=== PATIENT | female | born 1990 | race Caucasian/White ===

== ENCOUNTER 2017-10-21 12:41 | Inpatient (IN) | payer OTHER ==
[2017-10-21 17:18] LABS: ABS Basophils 0 10^3/ul (0-0.2); ABS Eosinophils 0.2 10^3/ul (0-0.6); ABS Lymphocytes 2.5 10^3/ul (1.0-4.8); ABS Monocytes 0.9 10^3/ul (0-0.8); ABS Neutrophils 6.9 10^3/ul (1.5-7.7); ABS Nucleated RBC 0 10^3/ul; Eosinophil % 2.1 % (0-6); Hematocrit 35 % (35-47); Hemoglobin 11.5 g/dl (12.0-16.0); Lymphocyte % 23.4 % (25-47); Mean Corpuscular HGB Conc 33 g/dl (31-36); Mean Corpuscular Hemoglobin 27 pg (27-31); Mean Corpuscular Volume 82 fL (80-97); Mean Platelet Volume 8 um3 (7.4-10.4); Nucleated Red Blood Cells % 0; Platelet Count 268 10^3/ul (150-450); Red Blood Count 4.26 10^6/ul (4.0-5.4); Red Cell Distribution Width 15 % (10.5-15); White Blood Count 10.6 10^3/ul (3.5-10.8)
[2017-10-21] MEDS ORDERED: Acetaminophen TAB* 325 MG PO ONE (18:00)
[2017-10-21] MEDS ORDERED: Penicillin G Potassium IV* 5,000,000 UNITS in NS 0.9% 100 ML* 100 ML IVPB ONE (19:01)
[2017-10-21] MEDS ORDERED: NS 0.9% 100 ML* 100 ML ONE (19:30)
[2017-10-21] MEDS: Penicillin G Potassium IV* 2,500,000 UNITS in NS 0.9% 100 ML* 100 ML IVPB SCH (23:55)
[2017-10-22] MEDS: Penicillin G Potassium IV* 2,500,000 UNITS in NS 0.9% 100 ML* 100 ML IVPB SCH ×5 (04:15→23:03)
[2017-10-22] MEDS ORDERED: Oxytocin in LR* 20 UNITS/1,000 ML BAG IVPB SCH ×2 (11:00→19:00)
[2017-10-22] MEDS ORDERED: Buffered Lidocaine 0.9% SYRIN* 5 ML/SYR SYRINGE ONE (12:30)
[2017-10-22] MEDS ORDERED: Witch Hazel PAD* JAR TOPICAL PRN (18:19)
[2017-10-22] MEDS ORDERED: Glycerin ADULT SUPP PR PRN (18:19)
[2017-10-22] MEDS ORDERED: Acetaminophen TAB* 325 MG PO PRN (18:19)
[2017-10-22] MEDS ORDERED: Dibucaine 1% 28.35 GM TUBE PR PRN (18:19)
[2017-10-22] MEDS ORDERED: Dibucaine 1% 28.35 GM TUBE ONE (19:52)
[2017-10-22] MEDS ORDERED: Ibuprofen TAB* 600 MG ONE (19:52)
[2017-10-22] MEDS ORDERED: Witch Hazel PAD* JAR ONE (19:52)
[2017-10-22] MEDS: Ibuprofen TAB* 600 MG PO PRN (19:54)
[2017-10-22] MEDS ORDERED: Simethicone TAB* 80 MG TAB.CHEW PO SCH (21:00)
[2017-10-22] MEDS: Docusate CAP* 100 MG PO SCH (23:04)
[2017-10-22] MEDS ORDERED: Phenylephrine IV* 40 MCG/ML 10 ML SYRINGE ONE (23:54)
[2017-10-23 07:39] LABS: ABS Basophils 0 10^3/ul (0-0.2); ABS Eosinophils 0.3 10^3/ul (0-0.6); ABS Lymphocytes 3.5 10^3/ul (1.0-4.8); ABS Monocytes 1.2 10^3/ul (0-0.8); ABS Neutrophils 9.5 10^3/ul (1.5-7.7); ABS Nucleated RBC 0 10^3/ul; Hematocrit 32 % (35-47); Lymphocyte % 24.3 % (25-47); Mean Corpuscular HGB Conc 34 g/dl (31-36); Mean Corpuscular Hemoglobin 28 pg (27-31); Mean Corpuscular Volume 81 fL (80-97); Mean Platelet Volume 8 um3 (7.4-10.4); Nucleated Red Blood Cells % 0; Platelet Count 250 10^3/ul (150-450); Red Blood Count 3.99 10^6/ul (4.0-5.4); Red Cell Distribution Width 15 % (10.5-15); White Blood Count 14.5 10^3/ul (3.5-10.8)
[2017-10-23] MEDS: Ibuprofen TAB* 600 MG PO PRN ×2 (07:46→20:05)
[2017-10-23] MEDS ORDERED: Ferrous Gluconate TAB* 324 MG TAB PO SCH (09:00)
[2017-10-23] MEDS: Docusate CAP* 100 MG PO SCH ×2 (16:29→20:05)
[2017-10-24] MEDS: Docusate CAP* 100 MG PO SCH ×2 (07:56→14:24)
[2017-10-24] MEDS: Ibuprofen TAB* 600 MG PO PRN ×2 (07:56→14:24)
[2017-10-24 08:05] VITALS: BP 121/70
== END 2017-10-24 18:40 | disposition home or self-care (01) | DRG 560 ==
LOC: MCHOBOUT 12:41 → MCHOB 16:25 → INTOOBSV 16:25 → MCHOB 17:16 → OBSVTOIN 19:01 → MCHOB 10-22 20:29
PROVIDERS: ADMIT Midwife; ATTEND Midwife
PROC: 10E0XZZ Delivery of Products of Conception, External Approach (ICD-10-PCS; principal; 2017-10-22)
PROC: 10907ZC Drainage of Amniotic Fluid, Therapeutic from Products of Conception, Via Natural or Artificial Opening (ICD-10-PCS; 2017-10-22)
PROC: 4A1HXCZ Monitoring of Products of Conception, Cardiac Rate, External Approach (ICD-10-PCS; 2017-10-22)
DX: O60.14X0 Preterm labor third trimester with preterm delivery third trimester, not applicable or unspecified (principal); O99.824 Streptococcus B carrier state complicating childbirth; Z3A.36 36 weeks gestation of pregnancy; Z37.0 Single live birth
CPT/HCPCS: 36415; 85025; 86850; 86900; 86901; A9270-GY; J2540